=== PATIENT | female | born 1955 | race Caucasian/White ===

== ENCOUNTER 2020-11-04 14:53 | Outpatient (CLI) | payer MEDICARE, SELFPAY ==
--- NOTE | ~2020-11-04 | MM_ITS ---
EXAMINATION: MM screening escobar BI w jules HISTORY: Screening mammogram, family history of breast cancer in her sister. TECHNIQUE: Craniocaudal and mediolateral oblique 3-D tomosynthesis images were obtained and synthetic 2-D images were generated. CAD analysis was submitted and interpreted. COMPARISON: 02/26/2019, 02/20/2018, 02/15/2017 BREAST PARENCHYMAL COMPOSITION: The breasts are heterogeneously dense, which may obscure small masses . FINDINGS: RIGHT BREAST: Focal asymmetry is present in the middle third upper outer right breast 6 cm from the n ipple. LEFT BREAST: There is no evidence of suspicious mass, calcification, or architectural distortion to s uggest malignancy. There has been no significant interval change. IMPRESSION: 1. Right breast focal asymmetry. 2. Additional mammographic views and possible breast ultrasound are recommended. BI-RADS Category 0: Incomplete: Needs additional imaging evaluation. Reviewed, dictated and finalized at location A. IMPRESSION: 1. Right breast focal asymmetry. 2. Additional mammographic views and possible breast ultrasound are recommended . BI-RADS Category 0: Incomplete: Needs additional imaging evaluation.
== END 2020-11-04 14:54 | disposition home or self-care (01) ==
LOC: ANHIMG 14:57
PROVIDERS: PCP Family Medicine; Visit Provider Physician Assistant
DX: Z12.31 Encounter for screening mammogram for malignant neoplasm of breast (principal); R92.8 Other abnormal and inconclusive findings on diagnostic imaging of breast
CPT/HCPCS: 77063; 77067

== ENCOUNTER 2020-11-27 11:41 | Outpatient (CLI) | payer MEDICARE, SELFPAY ==
--- NOTE | ~2020-11-27 | MMUS_ITS ---
EXAMINATION: MM diagnostic mammo unilat RT, US breast RT limited HISTORY: Right breast focal asymmetry on screening mammogram TECHNIQUE: Additional 3-D tomosynthesis images of the right breast were performed and synthetic 2-D i mages were generated. CAD analysis was submitted and interpreted. High resolution limited right breas t ultrasound was performed. COMPARISON: 11/04/2020, 02/26/2019, 02/20/2018 BREAST PARENCHYMAL COMPOSITION: The breasts are heterogeneously dense, which may obscure small masses . FINDINGS: MAMMOGRAPHIC FINDINGS: There is a return to baseline fibroglandular appearance with spot compression of the right breast in the area questioned on screening mammogram. ULTRASOUND: There is no evidence of focal abnormal solid or cystic mass in the vicinity of the mammographic findi ng in question. IMPRESSION: 1. No mammographic or sonographic evidence of malignancy. 2. Recommend routine screening mammography in one year. BI-RADS Category 1: Negative Reviewed, dictated and finalized at location A. IMPRESSION: 1. No mammographic or sonographic evidence of malignancy. 2. Recommend routine screening mammography in one year. BI-RADS Category 1: Negative
== END 2020-11-27 11:42 | disposition home or self-care (01) ==
LOC: ANHIMG 11:44
PROVIDERS: PCP Family Medicine; Visit Provider Physician Assistant
DX: R92.8 Other abnormal and inconclusive findings on diagnostic imaging of breast (principal)
CPT/HCPCS: 76642; 77065

== ENCOUNTER 2022-02-01 14:01 | Outpatient (CLI) | payer MEDICARE, SELFPAY ==
--- NOTE | ~2022-02-01 | MM_ITS ---
EXAMINATION: MM screening escobar BI w jules HISTORY: Screening mammogram TECHNIQUE: Craniocaudal and mediolateral oblique 3-D tomosynthesis images were obtained and synthetic 2-D images were generated. CAD analysis was submitted and interpreted. COMPARISON: 11/27/2020 diagnostic right mammogram and limited right breast ultrasound examination 11/04/2020, 02/26/2019 bilateral screening mammogram examinations BREAST PARENCHYMAL COMPOSITION: The breasts are heterogeneously dense, which may obscure small masses . FINDINGS: There is no evidence of suspicious mass, calcification, or architectural distortion to sugg est malignancy in either breast. There has been no suspicious interval change. IMPRESSION: 1. No mammographic evidence of malignancy. 2. Recommend routine screening mammography in one year. BI-RADS Category 1: Negative Reviewed, dictated and finalized at location A.
== END 2022-02-01 14:02 | disposition home or self-care (01) ==
PROVIDERS: PCP Emergency Medicine; Visit Provider Physician Assistant
DX: Z12.31 Encounter for screening mammogram for malignant neoplasm of breast (principal)
CPT/HCPCS: 77063; 77067

== ENCOUNTER 2022-07-19 12:39 | Outpatient (CLI) | payer MEDICARE, SELFPAY ==
[2022-07-19 13:29] LABS: Albumin Level 4.5 g/dL (3.5-5.1); Anion Gap 5 mmol/L (8-16); Blood Urea Nitrogen 15 mg/dL (7-17); Calcium 9.1 mg/dL (8.4-10.2); Carbon Dioxide 31 mmol/L (22-30); Chloride 102 mmol/L (98-107); Estimated Glomerular Filt Rate > 60; Glucose 175 mg/dL (65-110); HDL Direct 79 mg/dL; Phosphorus 3.2 mg/dL (2.5-4.5); Potassium 3.7 mmol/L (3.4-5.0); Sodium 138 mmol/L (137-145)
[2022-07-19 13:40] LABS: Parathyroid Intact 43.2 pg/mL (7.5-53.5)
[2022-07-19 13:43] LABS: LDL Cholesterol Direct 91 mg/dL
[2022-07-19 13:47] LABS: Free T4 Free Thyroxine 1.42 ng/mL (0.78-2.19); Vitamin D 25 Hydroxy 31.2 ng/mL
[2022-07-22 14:02] LABS: Thyroid Peroxidase Antibodies 2044 IU/mL (<9)
== END 2022-07-19 12:40 | disposition home or self-care (01) ==
LOC: ANHWCLAB 12:42
PROVIDERS: PCP Emergency Medicine; Visit Provider Internal Medicine Endocrinology, Diabetes & Metabolism
DX: M81.0 Age-related osteoporosis without current pathological fracture (principal); E10.65 Type 1 diabetes mellitus with hyperglycemia; E03.9 Hypothyroidism, unspecified; E55.9 Vitamin D deficiency, unspecified
CPT/HCPCS: 36415; 80069; 82306; 83718; 83721; 83970; 84439; 84443; 86376

== ENCOUNTER 2022-11-09 09:44 | Outpatient (CLI) | payer MEDICARE, SELFPAY ==
--- NOTE | ~2022-11-09 | DEXA_ITS ---
Bone Density Report Name: MARGE LOBO Age: 67 Sex: Female Ethnicity: White Date of : 1955 Indication: osteopenia; monitoring treatment; parental hip fracture; height loss; prior fracture; postmenopausal Referring Provider: RADHA MALDONADO Study: Bone densitometry was performed. Exam Date: November 09, 2022 Accession number: [id number] There is hypertrophic degenerative change of the lumbar spine, which results in higher than expected spine bone mineral density measurements. These spine BMD and T score and Z score measurements are not reflective of the patient's true general bone mineral density. Bone Density: Region BMD T-score Z-score Classification AP Spine(L2, L3, L4) 0.914 -1.5 0.5 Osteopenia Femoral Neck (Left) 0.565 -2.6 -0.9 Osteoporosis Total Hip (Left) 0.687 -2.1 -0.7 Osteopenia Femoral Neck (Right) 0.503 -3.1 -1.4 Osteoporosis Total Hip (Right) 0.666 -2.3 -0.9 Osteopenia Total Hip Mean 0.677 -2.2 -0.8 Osteopenia World Health Organization criteria for BMD impression classify patients as: Normal (T-score at or above -1.0), Osteopenia (T-score between -1.0 and -2.5), or Osteoporosis (T-score at or below -2.5). 10-year Fracture Risk: FRAX not reported because: Some T-score for Spine Total or Hip Total or Femoral Neck at or below -2.5 Prior hip or vertebral fracture Treated for osteoporosis Previous Exams: Region Exam Age BMD T-score BMD Change BMD Change Date g/cm2 vs Baseline vs Previous Total Hip(Left) 11/09/2022 67 0.687 -2.1 -0.127 (-15.6% -0.018 (-2.5%) 05/21/2019 63 0.705 -1.9 -0.109 (-13.4% 0.025 (3.7%) 02/15/2017 61 0.680 -2.1 -0.134 (-16.5% -0.021 (-3.0%) 12/27/2014 59 0.701 -2.0 -0.113 (-13.9% -0.113 (-13.9% 09/13/2011 55 0.814 -1.1 Total Hip(Right) 11/09/2022 67 0.666 -2.3 -0.051 (-7.2%) 0.006 (1.0%) 05/21/2019 63 0.660 -2.3 -0.058 (-8.1%) -0.007 (-1.0%) 02/15/2017 61 0.667 -2.3 -0.051 (-7.1%) 0.006 (0.9%) 12/27/2014 59 0.661 -2.3 -0.057 (-7.9%) -0.057 (-7.9%) 09/13/2011 55 0.718 -1.8 *Denotes significance at 95% confidence level, LSC for Total Hip = 0.027 g/cm2 # Denotes dissimilar scan types or analysis methods Clinical Information Provided by Patient: Have had a previous hip or vertebral fracture Has had a low trauma fracture Parent has had a hip fracture Is being treated for osteoporosis Has used the following medications: Vitamin D Patient maximum height was 61 Does not regularly consume dairy products Drinks caffeinated beverages Onset of menses at age 13
--- NOTE | ~2022-11-09 | US_ITS ---
Thyroid ultrasound. Clinical History: Thyroid nodule Findings: Real-time sonography of the thyroid gland was performed. The right lobe measures 4.6 x 1.9 x 1.6 cm. The left lobe measures 3.8 x 1.6 x 1.4 cm. The isthmus is 6 mm in AP diameter. Thyroid parenchyma is diffusely heterogeneous. No discrete nodule evident. There is diffuse relative hypervascularity on color imaging. Impression: Heterogeneous thyroid gland, with diffuse relative hypervascularity on color imaging. Consider thyroi ditis. Correlate with thyroid function tests and/or nuclear medicine thyroid uptake scan, as indicate d.. Reviewed, dictated and finalized at location M. Impression: Heterogeneous thyroid gland, with diffuse relative hypervascularity on color im aging. Consider thyroiditis. Correlate with thyroid function tests and/or nucle ar medicine thyroid uptake scan, as indicated..
== END 2022-11-09 09:45 | disposition home or self-care (01) ==
LOC: ANHIMG 09:45
PROVIDERS: PCP Emergency Medicine; Visit Provider Internal Medicine Endocrinology, Diabetes & Metabolism
DX: M81.0 Age-related osteoporosis without current pathological fracture (principal); E04.9 Nontoxic goiter, unspecified; M85.88 Other specified disorders of bone density and structure, other site; M85.852 Other specified disorders of bone density and structure, left thigh; M85.851 Other specified disorders of bone density and structure, right thigh
CPT/HCPCS: 76536; 77080

== ENCOUNTER 2023-03-08 13:52 | Outpatient (CLI) | payer MEDICARE, SELFPAY ==
--- NOTE | ~2023-03-08 | MM_ITS ---
EXAMINATION: MM screening escobar BI w jules HISTORY: Screening TECHNIQUE: Craniocaudal and mediolateral oblique 3-D tomosynthesis images were obtained and synthetic 2-D images were generated. CAD analysis was submitted and interpreted. COMPARISON: Comparison to multiple prior studies sequentially, with oldest reviewed study dated 02/15. BREAST PARENCHYMAL COMPOSITION: Breast composed of scattered areas of fibroglandular density FINDINGS: The left breast is stable without evidence for malignancy. There is a developing asymmetry with possible associated architectural distortions. Aspect of the right breast. IMPRESSION: 1. Developing right breast asymmetry with possible architectural distortion. 2. Additional mammographic views and possible breast ultrasound are recommended. BI-RADS Category 0: Incomplete: Needs additional imaging evaluation. Reviewed, dictated and finalized at location A. IMPRESSION: 1. Developing right breast asymmetry with possible architectural distortion. 2. Additional mammographic views and possible breast ultrasound are recommended . BI-RADS Category 0: Incomplete: Needs additional imaging evaluation.
== END 2023-03-08 13:53 | disposition home or self-care (01) ==
LOC: ANHIMG 13:54
PROVIDERS: PCP Emergency Medicine; Visit Provider Emergency Medicine
DX: Z12.31 Encounter for screening mammogram for malignant neoplasm of breast (principal); R92.8 Other abnormal and inconclusive findings on diagnostic imaging of breast
CPT/HCPCS: 77063; 77067

== ENCOUNTER 2023-04-03 12:45 | Outpatient (CLI) | payer MEDICARE, SELFPAY ==
--- NOTE | ~2023-04-03 | MMUS_ITS ---
EXAMINATION: MM diagnostic escobar RT w jules, US breast RT limited HISTORY: Focal asymmetry of the right breast on screening mammogram TECHNIQUE: Additional 3-D tomosynthesis images of the right breast were performed and synthetic 2-D i mages were generated. CAD analysis was submitted and interpreted. High resolution limited right breas t ultrasound was performed. COMPARISON: 03/08/2023, 02/01/2022, 11/27/2020, 11/04/2020, 02/26/2019 FINDINGS: MAMMOGRAPHIC FINDINGS: There is a return to baseline fibroglandular appearance with spot compression of the right breast in the area questioned on screening mammogram. ULTRASOUND: There is no evidence of focal abnormal solid or cystic mass in the vicinity of the mammographic findi ng in question. IMPRESSION: 1. No mammographic or sonographic evidence of malignancy. 2. Recommend routine screening mammography in one year. BI-RADS Category 1: Negative Reviewed, dictated and finalized at location A. ICAL EDITOR IMPRESSION: 1. No mammographic or sonographic evidence of malignancy. 2. Recommend routine screening mammography in one year. BI-RADS Category 1: Negative
== END 2023-04-03 12:46 | disposition home or self-care (01) ==
PROVIDERS: PCP Emergency Medicine; Visit Provider Emergency Medicine
DX: R92.8 Other abnormal and inconclusive findings on diagnostic imaging of breast (principal)
CPT/HCPCS: 76642; 77061; 77065; G0279

== ENCOUNTER 2023-04-28 15:23 | Outpatient (CLI) | payer MEDICARE, SELFPAY ==
--- NOTE | ~2023-04-28 | XR_ITS ---
EXAMINATION: XR thoracolumbar DATE: 04/28/2023 15:47 INDICATION: Wedge compression fracture of T11-T12. TECHNIQUE: 3 views of lumbar spine standing were obtained. COMPARISON: None. FINDINGS: There is 4 degrees dextrocurvature of thoracolumbar spine. There is a compression fracture of T12 with 2/5 loss of height. There is a burst fracture of L1 with 2/5 loss of height. There is mil dly decreased disc height at T11-T12, T12-L1, and L4-L5. There is multilevel facet joint osteoarthrit is, severe in lower lumbar spine. IMPRESSION: 1. Mild lumbar spondylosis. Reviewed, dictated and finalized at location E. SELING SERVICES DIRECTOR IMPRESSION: 1. Mild lumbar spondylosis.
== END 2023-04-28 15:24 | disposition home or self-care (01) ==
PROVIDERS: PCP Emergency Medicine; Visit Provider Physician Assistant
DX: S22.080A Wedge compression fracture of T11-T12 vertebra, initial encounter for closed fracture (principal); X58.XXXA Exposure to other specified factors, initial encounter; M47.896 Other spondylosis, lumbar region
CPT/HCPCS: 72080

== ENCOUNTER 2023-06-29 13:59 | Outpatient (CLI) | payer MEDICARE, SELFPAY ==
--- NOTE | ~2023-06-29 | XR_ITS ---
EXAMINATION: XR thoracolumbar DATE: 06/29/2023 14:20 INDICATION: Wedge compression fractures of T12 and L1. TECHNIQUE: 2 views of the thoracolumbar spine standing were obtained. COMPARISON: Radiographs 04/28/2023 FINDINGS: There is 6 degrees levocurvature of thoracic spine and 7 degrees dextrocurvature of thoraco lumbar spine. There is a burst fracture of superior endplate of T12 with 2/5 loss of height with inte rval worsening. There is a burst fracture of superior endplate of L1 with 2/5 loss of height without change. There is mildly decreased disc height at T11-T12, T12-L1, and L4-L5. There are endplate osteo phytes at all levels. There is multilevel facet joint osteoarthritis, severe in lower lumbar spine. IMPRESSION: 1. T12 burst fracture, mildly worsened from 04/28/2023. 2. Stable L1 burst fracture. 3. Mild lumbar spondylosis. Reviewed, dictated and finalized at location E. TORING TECH
== END 2023-06-29 14:00 | disposition home or self-care (01) ==
PROVIDERS: PCP Emergency Medicine; Visit Provider Physician Assistant
DX: S22.080A Wedge compression fracture of T11-T12 vertebra, initial encounter for closed fracture (principal); S32.011A Stable burst fracture of first lumbar vertebra, initial encounter for closed fracture; M43.06 Spondylolysis, lumbar region
CPT/HCPCS: 72080

== ENCOUNTER → 2023-07-17 15:38 | Outpatient (CLI) | payer MEDICARE, SELFPAY ==
--- NOTE | ~2023-07-17 | MR_ITS ---
MRI of the thoracic spine Clinical History: Fracture Technique: Axial T2-weighted and gradient images, and sagittal T1-weighted, T2-weighted, and STIR genesis ges were acquired. Findings: There is a benign, osteoporotic type multiple moderate compression fracture of T12, loss of height, with hypointense fracture line, and marrow edema. There is a similar degree chronic compress ion fracture of L1. No other fracture or subluxation seen. No other significant bone marrow signal ab normality seen. No significant disc bulge or herniation seen at any thoracic level. No spinal canal stenosis or cord compression identified. No epidural mass or collection seen. No abnormal signal seen in the spinal cord. Paravertebral soft tissues are unremarkable. Impression: Acute compression fracture T12, as detailed above. Chronic compression fracture of L1. Reviewed, dictated and finalized at [facility]. ING INTERVENTIONIST Impression: Acute compression fracture T12, as detailed above. Chronic compression fracture of L1.
== END ==
PROVIDERS: PCP Physician Assistant; Visit Provider Pain Medicine Pain Medicine
DX: M80.08XD Age-related osteoporosis with current pathological fracture, vertebra(e), subsequent encounter for fracture with routine healing (principal); S22.080A Wedge compression fracture of T11-T12 vertebra, initial encounter for closed fracture; S32.010A Wedge compression fracture of first lumbar vertebra, initial encounter for closed fracture; X58.XXXA Exposure to other specified factors, initial encounter
CPT/HCPCS: 72146

== ENCOUNTER 2023-11-14 13:00 | Outpatient (RCR) | payer MEDICARE, SELFPAY | END 2023-11-27 10:38 | disposition home or self-care (01) | LOC: ANHDMC 13:00 | PROVIDERS: PCP Emergency Medicine; Visit Provider Internal Medicine Endocrinology, Diabetes & Metabolism | DX: E10.65 Type 1 diabetes mellitus with hyperglycemia (principal); Z71.89 Other specified counseling | CPT/HCPCS: G0108 ==

== ENCOUNTER 2024-04-04 14:18 | Outpatient (CLI) | payer MEDICARE, SELFPAY ==
--- NOTE | ~2024-04-04 | MM_ITS ---
EXAMINATION: MM screening escobar BI w jules HISTORY: Screening mammogram, family history of breast cancer in her sister. TECHNIQUE: Craniocaudal and mediolateral oblique 3-D tomosynthesis images were obtained and synthetic 2-D images were generated. CAD analysis was submitted and interpreted. COMPARISON: 03/08/2023, 02/01/2022, 11/04/2020 BREAST PARENCHYMAL COMPOSITION:Dense: The breasts are heterogeneously dense, which may obscure small masses. FINDINGS: No suspicious mass, calcification, or architectural distortion are identified in either roxann ast to suggest malignancy. There has been no suspicious interval change. IMPRESSION: No mammographic evidence of malignancy. Recommend routine screening mammography in one year. BI-RADS Category 1: Negative Reviewed, dictated and finalized at location . T TESTER
== END 2024-04-04 14:19 | disposition home or self-care (01) ==
LOC: ANHIMG 14:21
PROVIDERS: PCP Family Medicine; Visit Provider Emergency Medicine
DX: Z12.31 Encounter for screening mammogram for malignant neoplasm of breast (principal)
CPT/HCPCS: 77063; 77067

== ENCOUNTER 2024-11-11 14:00 | Outpatient (CLI) | payer MEDICARE, SELFPAY ==
--- NOTE | ~2024-11-11 | DEXA_ITS ---
Bone Density Report Name: MARGE LOBO Age: 69 Sex: Female Ethnicity: White Date of : 1955 Indication: osteopenia; monitoring treatment; height loss; Referring Provider: Yancy Oliveira Study: Bone densitometry was performed. Exam Date: November 11, 2024 Accession number: [id number] Bone Density: Region BMD T-score Z-score Classification AP Spine(L2, L3, L4) 1.020 -0.5 1.6 Normal Femoral Neck (Left) 0.515 -3.0 -1.2 Osteoporosis Total Hip (Left) 0.654 -2.4 -0.9 Osteopenia Femoral Neck (Right) 0.457 -3.5 -1.7 Osteoporosis Total Hip (Right) 0.621 -2.6 -1.1 Osteoporosis Total Hip Mean 0.638 -2.5 -1.0 Osteoporosis World Health Organization criteria for BMD impression classify patients as: Normal (T-score at or above -1.0), Osteopenia (T-score between -1.0 and -2.5), or Osteoporosis (T-score at or below -2.5). 10-year Fracture Risk: FRAX not reported because: Some T-score for Spine Total or Hip Total or Femoral Neck at or below -2.5 Treated for osteoporosis Previous Exams: -- Region Exam Age BMD T-score BMD Change BMD Change Date g/cm2 vs Baseline vs Previous -- AP Spine (L2-L4) 11/11/2024 69 1.020 -0.5 11.5%* 11.5%* 11/09/2022 67 0.914 -1.5 Total Hip(Left) 11/11/2024 69 0.654 -2.4 -4.8%* -4.8%* 11/09/2022 67 0.687 -2.1 Total Hip(Right) 11/11/2024 69 0.621 -2.6 -6.8%* -6.8%* 11/09/2022 67 0.666 -2.3 -- *Denotes significance at 95% confidence level, LSC for AP Spine = 0.022 g/cm2, LSC for Total Hip = 0.027 g/cm2 Clinical Information Provided by Patient: Is being treated for osteoporosis Has used the following medications: Forteo (i.e. parathyroid hormone), Vitamin D, Calcium Patient maximum height was 61 Does not regularly consume dairy products Drinks caffeinated beverages Onset of menses at age 14 Number of children 2 Impression: The patient has osteoporosis, based on the Right Femoral Neck T-score. The BMD for the Total Hip(Left) decreased, changing by -4.8% since the last DXA exam. The BMD for the Total Hip(Right) decreased, changing by -6.8% since the last DXA exam. Discussion: SIGNIFICANT BONE LOSS OBSERVED. Adherence to therapy (including calcium and vitamin D intake) should be assessed. If compliance is not a factor, review management and exclusion of secondary causes of bone loss. It is important to ask patients whether they are taking their medications and to encourage continued and appropriate compliance with their osteoporosis therapies to reduce fracture risk. It is also important to review their risk factors and encourage appropriate calcium and vitamin D intakes, exercise, fall prevention and other lifestyle measures. Follow-Up: Consider a repeat BMD and Vertebral Fracture Assessment (VFA) exam in 2 years or sooner if medically necessary, to reassess this patient's status. Reported by: CLAY on 11/11/2024 2:29:00 PM. Reviewed, dictated and finalized at location A.
== END 2024-11-11 14:01 | disposition home or self-care (01) ==
LOC: MICIMG 14:01
PROVIDERS: PCP Internal Medicine; Visit Provider Internal Medicine Endocrinology, Diabetes & Metabolism
DX: M81.0 Age-related osteoporosis without current pathological fracture (principal)
CPT/HCPCS: 77080

== ENCOUNTER 2024-12-25 10:56 | Outpatient (CLI) | payer MEDICARE, SELFPAY ==
--- OUTSIDE RECORDS SUMMARY | 2024-12-25 11:50 | XMS_ITS | Clinical Summary ---
Author Organization [facility] Address [address] [place] [address] Care Team Providers Care Lpn Medical Assistant Name Role Phone Unavailable Primary Care Provider Unavailabl e Source Comments [facility],non-owned Affiliates and Associated Physician Practices is amultiple site organization consisting of ambulatory clinics and hospital sitesin [place], [place], [place] and [place]. This disclosure is being madepursuant to the Care Everywhere program and may not contain all information available regarding this patient. 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 Gender Identity Not on file Sexual Orientation Not on file Plan of Treatment Health Maintenance Due Date Last Done Comments BONE DENSITY TESTING 1955 COLOGUARD (AGES 45-75) - COL ON CA SCREENING 1955 COLON MONITORING 1955 COLONOSCOPY - COLON CA SCREENING 1955 CT COLONOGRAPHY - COLON CA SCREENING 1955 Colorectal Cancer Screening 1955 FIT - COLON CA SCREENING 1955 FLEX SIG - COLON CA SCREENING 1955 LIPID TESTING 1955 MAMMOGRAM 1955 HEPATITIS C SCREENING 10/23/1972 DTAP/TDAP/TD VACCINES (1 - Tdap) 1973 PNEUMOCOCCAL VACCINE 50+ (1 of 1 - PCV) 2004 ZOSTER VACCINE (1 of 2) 2004 COVID-19 VACCINE ( - 2023-2 5 season) 2024 DEPRESSION SCREENING 05/22/2024 INFLUENZA VACCINE (#1) 2025 Respiratory Syncytial Virus (RSV) Vaccine Pt: or over 60 yrs (1 - 1-dose 75+ series) 2029 HEPATITIS B VACCINE Aged Out No longe r eligible based on patient's age to complete this topic HIB VACCINE Aged Out No longer eligi ble based on patient's age to complete this topic HPV VACCINE Aged Out No longer eligi ble based on patient's age to complete this topic MENINGOCOCCAL (Group B) VACC INE SHARED DECISION-MAKING Aged Out No longer eligibl e based on patient's age to complete this topic MENINGOCOCCAL GROUPS A/C/Y/W VACCINE Aged Out No longer eligible b ased on patient's age to complete this topic
--- NOTE | 2025-01-13 14:05 | WPDHOMESLEEP ---
Sleep Study - Home Unattended Date of Study: 12/25/24 Ordering Provider: Meri Avelar NP Interpreting Provider: Meron Maier, DO Home Sleep Study Type: Watch EPI Height: 1.51 m Weight: 52.163 kg Body Mass Index: 22.8 Neck Circumference (inches): 13 Schriever: 0 Reason for Sleep Study Difficulty falling asleep Sleep History The patient is a 69-year-old female that had a sleep study ordered by your primary care for evaluation of sleep apnea. The patient denies awakening from sleep short of breath. She denies awakening at night with heartburn, belching, or cough. She denies snoring. She frequently has trouble sleeping when she has a cold. She denies waking up gasping for air throughout the night. She denies having breathing problems at night observed by herself or others. She denies sweating excessively at night. She denies having heart palpitations or irregular heartbeats during the night. She denies falling asleep during the day and while driving. She denies sleep paralysis and cataplexy. She denies having trouble at school or work due to sleepiness. She occasionally experiences vivid dreamlike scenes upon awakening or falling asleep. She denies feeling afraid of going to sleep. She denies having nightmares. She occasionally remembers her dreams. She frequently has thoughts racing through her mind. She frequently feels sad, depressed, and anxious. She rarely has muscular tension. She denies noticing parts of her body jerk. She rarely has crawling and aching feelings in her legs and rarely has leg pain during the night. She rarely grinds her teeth during sleep and rarely awakens with morning jaw pain. She is rarely bothered by pain during the day and rarely awakened by pain during the night. She rarely wakes up feeling stiff in the morning. She rarely wakes up with sore or achy muscles. She rarely wakes up with pain in the neck, spine, and other joints. She goes to bed at 9 p.m. on weekdays and between 10 to 11 p.m. on the weekends. It can take her a while to fall asleep. She will wake up throughout the night to use the restroom. She will wake up at 7 a.m. on weekdays and between 9 to 10 a.m. on the weekends. She typically gets 5 hours of sleep. She currently lives with her . She denies consuming any caffeinated beverages within 2 hours of bedtime. She denies engaging in physical exercise before bedtime. She denies reading before falling asleep. She will watch television before falling asleep. She denies taking naps in afternoon or the evening. She consumes 1-2 cups of caffeinated beverage every morning. She rarely consumes alcoholic beverages. She denies tobacco and recreational drug use. FORMERLY [facility] Past Medical History Medical History Impetigo Sara's thyroiditis Bursitis of right shoulder Body mass index (BMI) greater than 25 (10/20/15) Goiter Hyperlipidemia LDL goal <100 Vitamin D deficiency Insomnia Osteoporosis Leukocytosis Lumbar compression fracture Generalized anxiety disorder Type 1 diabetes mellitus with hyperglycemia, with long-term current use of insulin Depression Cataract Dyspareunia, female Essential (primary) hypertension Hypothyroidism Surgical History Surgical History History of appendectomy Family History Family History Sibling Family history of thyroid disease Depression Family history of malignant neoplasm of breast in first degree relative Mother Depression Hypertension Family history of alcoholism Family history of kidney disease Family history of heart disease in male family member before age 55 Father Family history of alcoholism Family history of arthritis Family history of emphysema Other Diabetes mellitus Family history of cardiovascular disease Family history of malignant neoplasm of male breast Social History Social History Smoking status: Never smoker Second hand tobacco smoke exposure: No Alcohol intake: current Drinks per week: 2 Alcohol use details: occasionally-2 glasses of wine every couple of weeks Substance use: never Substance use type: does not use Lack of Transportation: No Lack of Food: Never True Current Housing: Decline to Answer Concerned About Future Housing: Decline to Answer Difficulty Paying Gas/Electric Bills: Decline to Answer Difficulty Paying for Meds: Decline to Answer Currently Unemployed: Decline to Answer Education: Decline to Answer Difficulty w/ Childcare or Family Care: Decline to Answer Living arrangements: with family Occupation/Education: retired Gender identity (if verbalized by the patient): Female Medications Home Medications ?Medication ?Instructions ?Recorded ?Confirmed ?Type teriparatide 20 mcg/dose (560 20 mcg subcut DAILY 12/06/23 12/13/24 History mcg/2.24 mL) subcutaneous pen injector (Forteo) estradiol 0.01% (0.1 mg/gram) 1 g vaginal 3XW PRN 03/28/24 12/13/24 History vaginal cream (Estrace) calcium [calcium citrate] 1 tablet PO DAILY 05/06/24 12/13/24 History mecobalamin (vitamin B12) 1 tablet PO DAILY 05/06/24 12/13/24 History insulin pump cart,automated,BT #10 ea 05/09/24 12/13/24 Rx pen needle, diabetic 31 gauge x #100 ea 06/14/24 12/13/24 Rx 5/16 (BD Ultra-Fine Short Pen Needle) blood-glucose sensor (Dexcom G6 #9 ea 08/07/24 12/13/24 Rx Sensor device) blood-glucose transmitter (Dexcom #1 ea 08/07/24 12/13/24 Rx G6 Transmitter device) cholecalciferol (vitamin D3) 1,250 1,250 mcg PO WEEKLY #14 tabs 08/07/24 12/13/24 Rx mcg (50,000 unit) tablet levothyroxine 50 mcg tablet 50 mcg PO DAILY #90 tabs 08/08/24 12/13/24 Rx insulin lispro 100 unit/mL See Rx Instructions .Route 08/21/24 12/13/24 Rx subcutaneous solution (Humalog .COMPLEX #50 mL U-100 Insulin) rosuvastatin 5 mg tablet See Rx Instructions .Route 10/16/24 12/13/24 Rx .COMPLEX #90 tabs insulin pump cart,auto,BT,G6/7 #30 ea 11/06/24 12/13/24 Rx (Omnipod 5 G6-G7 Pods (Gen 5) subcutaneous cartridge) alprazolam 1 mg tablet 1.5 mg (1.5 x 1 mg) PO .qhs #135 12/03/24 12/13/24 Rx tabs eszopiclone 2 mg tablet (Lunesta) 2 mg PO QHS #1 tablet 12/24/24 Rx Sleep Procedure The sleep study was completed using WatchPAT a technically adequate device with seven channels: peripheral arterial tone, actigraphy, body position, snore, respiratory movement, pulse oximetry, sleep staging, and heart rate. Prior to using the device, the patient received verbal and written instructions for its application and was provided with the help desk phone number for additional telephonic instruction with 24-hour availability of qualified personnel to answer questions. The study was scored using CMS guidelines. Sleep Architecture The total recording time is 10 hrs, 39 min. The total sleep time is 8 hrs, 49 min. Sleep latency is 10 minutes. REM latency is 35 minutes. The patient had 13 episodes of waking. Sleep architecture shows 13.4% deep sleep, 79.7% light sleep, and (as % Total Sleep Time) showed NREM (Light 79.7%; Deep 13.4%), and a 6.9% stage REM. The patient spent 60.2% of total sleep time in the supine position. Sleep efficiency was 82.79. Respiratory Analysis The overall AHI (pAHI 4%:) is 2.6. The overall AHI (pAHI 3%:) is 5.5. The central AHI is 0.0. The AHI was 5.2 in NREM and 8.3 in REM sleep. The AHI was 7.4 in Supine and 2.6 in Non-supine sleep. Percent of Jesse Oropeza respirations is 0.0. Oximetry Data The oxygen desaturation index (ANNA MARIE 4%:) is 1.6. The mean saturation is 93%, and the lowest saturation is 88%. Time spent with saturation < 88% is 0.3 minutes. Snoring Profile Snoring average intensity is 40 dB. The patient snored above 45 decibels for 11.1 minutes, 2.1% of sleep time. Cardiac Profile The average pulse rate is 68 beats per minutes. The lowest pulse rate is 54 bpm. The highest pulse rate reported is 86 bpm. Atrial fibrillation was not detected. Premature beats occur <0.1 per minute. Assessment and Plan Assessment and Plan (1) Sleep disturbance: Code(s): G47.9 - Sleep disorder, unspecified Status: Acute Assessment and Plan: The patient had an overall AHI of 2.6 with desaturation down to 88%. This is not consistent with sleep-disordered breathing. I recommend that the patient consider CBT-I as a treatment option for her insomnia. Data The data obtained during this sleep study is adequate for interpretation. Certification This sleep study has been reviewed by a board certified sleep medicine physician.
[2025-01-14 16:05] VITALS: BMI 22.8
== END 2024-12-26 13:50 | disposition home or self-care (01) ==
LOC: ANHCSM 11:05
PROVIDERS: PCP Nurse Practitioner; Visit Provider Nurse Practitioner
DX: G47.9 Sleep disorder, unspecified (principal)
CPT/HCPCS: 95800